=== PATIENT | male | born 1985 | race Two or more races ===

== ENCOUNTER 2016-12-13 12:17 | Emergency (ER) | payer BC, OTHER ==
[~2016-12-13] VITALS: Ht 180.3 cm; Wt 126.0 kg
[2016-12-13] MEDS ORDERED: SODIUM CHLORIDE 0.9% 1,000ML IVBOLUS ONE ×2 (13:00→15:00)
[2016-12-13] MEDS ORDERED: SODIUM CHLORIDE FLUSH 10ML SYR IVF ONE (13:00)
[2016-12-13] MEDS ORDERED: LORazepam 2 MG/ML, 1ML IVPush ONE (13:00)
[2016-12-13] MEDS ORDERED: ONDANSETRON 2MG/ML, 2ML IVPush ONE (13:00)
[2016-12-13 13:16] LABS: HEMATOCRIT 46.9 % (39.2-51.8); WHITE BLOOD COUNT 7.8 x10^3/uL (3.4-10)
[2016-12-13 13:29] LABS: BLOOD UREA NITROGEN 8 mg/dL (7-18)
[2016-12-13 13:33] LABS: IS PT STATUS REG ER OR PRE ER? YES
[2016-12-13] MEDS ORDERED: LORazepam 2 MG/ML, 1ML ONE (13:39)
[2016-12-13 15:38] VITALS: BP 116/67
== END 2016-12-13 15:40 | disposition home or self-care (01) ==
LOC: ED 15:13
DX: R55 Syncope and collapse (principal); F41.1 Generalized anxiety disorder; I10 Essential (primary) hypertension
CPT/HCPCS: 36415; 71010; 80048; 82040; 84484; 85025; 93005; 96361; 96374; 96375; 99285; J2060; J2405; J7030

== ENCOUNTER → 2018-06-20 | Outpatient (CLI) | payer OTHER | END | disposition home or self-care (01) | LOC: CFH 16:20 | PROVIDERS: ATTEND Family Medicine | DX: R05 Cough (principal) | CPT/HCPCS: 71046 ==